=== PATIENT | male | born 1955 | race Caucasian/White ===

== ENCOUNTER → 2023-12-26 07:22 | Outpatient (REF) | payer OTHER, SELFPAY | LOC: PAVMRI 07:22 | PROVIDERS: ATTENDING PHYSICIAN Student in an Organized Health Care Education/Training Program; FAMILY PHYSICIAN Physician Assistant Medical | DX: C82.13 Follicular lymphoma grade II, intra-abdominal lymph nodes (principal); K76.9 Liver disease, unspecified | CPT/HCPCS: 74183; A9581 ==

== ENCOUNTER → 2024-06-05 07:23 | Outpatient (REF) | payer OTHER, SELFPAY | LOC: RCS 07:23 | PROVIDERS: ATTENDING PHYSICIAN Physician Assistant Medical | DX: I25.10 Atherosclerotic heart disease of native coronary artery without angina pectoris (principal) | CPT/HCPCS: 78452; 93017; A9500 ==